=== PATIENT | male | born 1990 | race Caucasian/White ===

== ENCOUNTER 2023-07-02 16:30 | Inpatient (IN) | payer OTHER ==
[2023-07-02 18:41] VITALS: BMI 24.3
[2023-07-02] MEDS ORDERED: BENZOCAINE/MENTHOL (CHLORASEPTIC ) LOZENGE MM PRN (20:16)
[2023-07-02] MEDS ORDERED: NALOXONE HCL (KLOXXADO) 8 MG SPRAY NS PRN (20:16)
[2023-07-02] MEDS ORDERED: MAGNESIUM HYDROX 2400MG/30ML ORAL SUSPENSION 30 ML CUP PO PRN (20:16)
[2023-07-02] MEDS ORDERED: IBUPROFEN 600 MG TABLET (FP) PO PRN (20:16)
[2023-07-02] MEDS ORDERED: MAG HYDROX/AL HYDROX/SIMETH 30 ML UNIT-DOSE CUP PO PRN (20:16)
[2023-07-02] MEDS ORDERED: ACETAMINOPHEN 325 MG TABLET (FP) PO PRN (20:16)
[2023-07-02] MEDS ORDERED: IBUPROFEN 400 MG TABLET (FP) PO PRN (20:16)
[2023-07-02] MEDS ORDERED: DICYCLOMINE HCL 10 MG CAPSULE PO PRN (20:16)
[2023-07-02] MEDS ORDERED: BENZONATATE 200 MG CAPSULE PO PRN (20:16)
[2023-07-02] MEDS ORDERED: NALOXONE HCL 0.4 MG/ML VIAL IM PRN (20:16)
[2023-07-02] MEDS ORDERED: POLYETHYLENE GLYCOL (HEALTHYLAX) 3350 17 GM PACKET PO PRN (20:16)
[2023-07-02] MEDS ORDERED: ONDANSETRON *ODT* 4 MG TABLET SL PRN (20:16)
[2023-07-02] MEDS ORDERED: METHOCARBAMOL 500 MG TABLET PO PRN (20:16)
[2023-07-02] MEDS ORDERED: guaiFENesin 600 MG TABLET.ER (FP) PO PRN (20:16)
[2023-07-02] MEDS ORDERED: BISMUTH SUBSALICYLATE 524 MG/30 ML PO PRN (20:16)
[2023-07-02] MEDS ORDERED: hydrOXYzine PAMOATE 25 MG CAPSULE (FP) PO PRN (20:16)
[2023-07-02] MEDS ORDERED: LOPERAMIDE HCL 2 MG CAPSULE PO PRN (20:16)
[2023-07-02] MEDS: diazePAM 5 MG TABLET PO PRN (20:54)
[2023-07-02] MEDS ORDERED: MELATONIN 5 MG TABLETS PO SCH (22:00)
[2023-07-02] MEDS ORDERED: THIAMINE HCL 100 MG TABLET (FP) PO SCH (22:00)
[2023-07-02] MEDS: diazePAM 5 MG TABLET PO SCH (23:31)
[2023-07-03] MEDS: diazePAM 5 MG TABLET PO SCH (05:53)
[2023-07-03 06:18] VITALS: RESP 18
[2023-07-03] MEDS: diazePAM 5 MG TABLET PO PRN (09:05)
[2023-07-03 09:40] VITALS: BP 167/89; PULSE 82; TEMP 97.8
[2023-07-03] MEDS ORDERED: PRENATAL VITAMINS W/ FOLIC ACID TABLET (FP) PO SCH (10:00)
[2023-07-03] MEDS ORDERED: PNEUMOC 20-VAL CONJ-DIP CRM/PF 0.5 ML SYRINGE IM ONE (12:00)
[2023-07-04] MEDS ORDERED: diazePAM 5 MG TABLET PO SCH (06:00)
[2023-07-05] MEDS ORDERED: diazePAM 5 MG TABLET PO SCH (06:00)
[2023-07-06] MEDS ORDERED: diazePAM 5 MG TABLET PO ONE (06:00)
== END 2023-07-03 09:18 | disposition left against medical advice (07) | DRG 894 ==
LOC: YASAS 16:30 → Y3N 20:16
PROVIDERS: ADMIT Allergy & Immunology; ATTEND Surgery
PROC: HZ2ZZZZ Detoxification Services for Substance Abuse Treatment (ICD-10-PCS; principal; 2023-07-02)
DX: F13.230 Sedative, hypnotic or anxiolytic dependence with withdrawal, uncomplicated (principal); F41.8 Other specified anxiety disorders; G47.00 Insomnia, unspecified; Z86.69 Personal history of other diseases of the nervous system and sense organs
CPT/HCPCS: 87635; 93005; 93010